=== PATIENT | male | born 1985 | race Two or more races ===

== ENCOUNTER 2020-11-19 17:12 | Emergency (ER) | payer OTHER ==
[~2020-11-19] VITALS: Ht 180.3 cm; Wt 61.0 kg
[2020-11-19 18:22] VITALS: BP 122/71
[2020-11-19] MEDS ORDERED: LIDOCAINE 2% Multi-Dose 20 ML VIAL. IJ ONE (18:45)
[2020-11-19] MEDS ORDERED: DIPH,PERTUSS(ACELL),TET VAC/PF 0.5 ML SYRINGE. VAX IM ONE (18:45)
[2020-11-19] MEDS ORDERED: LIDOCAINE 2% Multi-Dose 20 ML VIAL. ONE (18:50)
--- NOTE | 2020-11-19 19:10 | PHYS DOC ---
Past Medical History Past Medical History: No Pertinent History Past Surgical History: No Surgical History Smoking Status: Never Smoker Alcohol Use: None General Adult EDM: Chief Complaint: LACERATION/AVULSION HPI: HPI: Patient is a 35 year old right-handed male presenting to the ED today with left index finger laceration that occurred a couple minutes prior to coming to the ED. Patient reports a piece of metal cut him at work. Review of Systems: Review of Systems: Constitutional: Denies fever or chills. [] Musculoskeletal: Denies back pain or joint pain. [] Integument: Reports left index finger laceration Neurologic: Denies headache, focal weakness or sensory changes. [] Psychiatric: Denies depression or anxiety. [] Heart Score: Risk Factors: Risk Factors: DM, Current or recent (<one month) smoker, HTN, HLP, family history of CAD, obesity. Risk Scores: Score 0 - 3: 2.5% MACE over next 6 weeks - Discharge Home Score 4 - 6: 20.3% MACE over next 6 weeks - Admit for Clinical Observation Score 7 - 10: 72.7% MACE over next 6 weeks - Early Invasive Strategies Current Medications: Current Medications Medications (Trade) Dose Ordered Sig/Kisha Start Time Stop Time Status Last Admin Dose Admin Diphtheria/ Tetanus/Acell Pertussis (ADACEL TDap SYRINGE) 0.5 ml ONCE ONCE 11/19/20 18:45 11/19/20 18:46 DC 11/19/20 18:53 0.5 ML Lidocaine HCl (Lidocaine 2% 20ml Vial) 20 ml STK-MED ONCE 11/19/20 18:50 11/19/20 18:50 DC Allergies: Allergies: Allergies Coded Allergies Type Severity Reaction Last Updated Verified No Known Drug Allergies 11/19/20 No Physical Exam: PE: Constitutional: Well developed, well nourished, no acute distress, non-toxic appearance. [] Skin: Tip of the left index finger with a skin avulsion type laceration approximately 2 cm long. There is no tendon involvement. Patient able to flex and extend the finger at the MIP, PIP and DIP joints. +2 left radial pulse. Cap refill less than 2 seconds the left index finger. Adequate radial sensation to the left index finger Back: No tenderness, no CVA tenderness. [] Extremities: No tenderness, no cyanosis, no clubbing, ROM intact, no edema. [] Neurologic: Alert and oriented X 3, normal motor function, normal sensory function, no focal deficits noted. [] Psychologic: Affect normal, judgement normal, mood normal. [] Current Patient Data: Vital Signs: Vital Signs Date Time Temp Pulse Resp B/P (MAP) Pulse Ox O2 Delivery O2 Flow Rate FiO2 11/19/20 18:22 98.6 60 18 122/71 (88) 100 Room Air 98.6 EKG: EKG: [] Radiology/Procedures: Radiology/Procedures: Laceration/Wound Repair Wound Location: Left index finger Wound's Depth, Shape: V Wound Length (cm): Approximately 2 cm Wound Explored: clean Irrigated w/ Saline (ccs): 30 Betadine Prep?: Yes Anesthesia: 1% of lidocaine Volume Anesthetic (ccs): Approximately 3 cc Wound Repaired With: Vicryl Suture Size/Type: 5.0/interrupted sutures Number of Sutures: 5 Progress : Wound was covered with nonstick dressing Course & Med Decision Making: Course & Med Decision Making Pertinent Labs and Imaging studies reviewed. (See chart for details) This is a 35-year-old male patient presented to the ED today with left index finger laceration that was closed by me as noted in procedures. Wound care instructions and return precautions provided. Tetanus updated. [place] Disclaimer: Jayme Disclaimer: This electronic medical record was generated, in whole or in part, using a voice recognition dictation system. Departure Departure Impression: Primary Impression: Laceration of left index finger Qualified Codes: S61.211A - Laceration without foreign body of left index finger without damage to nail, initial encounter Disposition: 01 DC HOME SELF CARE/HOMELESS Condition: STABLE Referrals: NO PCP (PCP) Follow-up with your doctor in 1 to 2 weeks Patient Instructions: Fingertip Laceration Additional Instructions: You have left index finger laceration that was closed with dissolvable stitches they do not need to be removed, they will fall off on their own. You can shower and wash your hands starting tomorrow. Remove the dressing tomorrow. Apply Neosporin to the area twice a day starting tomorrow. You could keep the area open to air starting tomorrow. Monitor the area for any signs of infection including but not limited to increased redness, warmth, yellow drainage or warmth and return to the ED it they occur ALMA ALONZO APRN Nov 19, 2020 19:10
== END 2020-11-19 19:19 | disposition home or self-care (01) ==
LOC: ER 17:12
DX: S61.211A Laceration without foreign body of left index finger without damage to nail, initial encounter (principal); Y28.8XXA Contact with other sharp object, undetermined intent, initial encounter; Y93.89 Activity, other specified; Y92.69 Other specified industrial and construction area as the place of occurrence of the external cause; Y99.0 Civilian activity done for income or pay
CPT/HCPCS: 12001; 90471; 90715; 99283